=== PATIENT | male | born 1970 | race Caucasian/White ===

== ENCOUNTER 2017-05-04 12:05 | Emergency (ER) | payer BC ==
[~2017-05-04] VITALS: Ht 188 cm; Wt 99.8 kg
--- NOTE | 2017-05-04 12:11 | NUR ---
[facility] FROM [place]: ETOH. PLACED ON MONITOR. AWAITING MD ORDER
[2017-05-04] MEDS ORDERED: IV NS 0.9% 1,000 ML BAG IV ONE ×2 (12:30)
[2017-05-04 12:39] LABS: BASOPHILS # (AUTO) 0.1 /CMM (0.0-0.2); EOSINOPHILS # (AUTO) 0.1 /CMM (0.0-0.7); EOSINOPHILS % (AUTO) 1.2 % (0.0-6.0); HEMATOCRIT 47 % (39-51); HEMOGLOBIN 15.8 g/dL (13.5-17.5); LYMPHOCYTES # (AUTO) 2.5 /CMM (0.8-4.8); LYMPHOCYTES % (AUTO) 51.1 % (20.0-44.0); MEAN CORPUSCULAR HEMOGLOBIN 31 PG (26.0-33.0); MEAN CORPUSCULAR HGB CONC 34 g/dl (31.0-36.0); MEAN CORPUSCULAR VOLUME 91 fL (80-96); MONOCYTES # (AUTO) 0.3 /CMM (0.1-1.30); MONOCYTES % (AUTO) 6.8 % (2.0-12.0); NEUTROPHILS % (AUTO) 39.9 % (43.0-81.0); PLATELET COUNT (AUTO) 353 /CMM (150-450); RDW COEFFICIENT OF VARIATION 13.6 (11.5-15.0); RED BLOOD CELL COUNT(AUTO) 5.12 MIL/uL (4.5-6.0)
[2017-05-04 12:46] LABS: CALCIUM, SERUM 8.9 mg/dL (8.5-10.1)
[2017-05-04 12:54] LABS: ALBUMIN 4.4 g/dL (3.4-5.0); BILIRUBIN,DIRECT 0.1 mg/dL (0.0-0.2); BILIRUBIN,TOTAL 0.6 mg/dL (0.2-1.0); TOTAL PROTEIN, SERUM 7.6 g/dL (6.4-8.2)
[2017-05-04] MEDS ORDERED: LORAZEPAM INJ 2 MG/ML VIAL ONE (14:23)
[2017-05-04 14:24] LABS: APPEARANCE,URINE Clear (CLEAR); BILIRUBIN,URINE Negative (NEGATIVE); BLOOD, URINE Trace-intact Ery/uL (NEGATIVE); COLOR,URINE Light yellow (YELLOW); KETONES,URINE Negative (NEGATIVE); LEUKOCYTE ESTERASE ,URINE Negative (NEGATIVE); NITRITE, URINE Negative (NEGATIVE); PROTEIN,URINE Negative (NEGATIVE); UGLUCOSE Negative (NEGATIVE); UROBILINOGEN,URINE 0.2 EU/dL (0.2)
[2017-05-04] MEDS ORDERED: LORAZEPAM INJ 2 MG/ML VIAL IM ONE (14:30)
[2017-05-04 14:33] LABS: RBC,URINE 0-1 /HPF (0-2); WBC,URINE 0-3 /HPF (0-3)
[2017-05-04 14:34] LABS: BACTERIA,URINE None seen /HPF (None Seen); SQUAMOUS EPITHELIAL CELL,UR Few /HPF (None Seen)
[2017-05-04] MEDS ORDERED: HALOPERIDOL LACTATE INJ 5 MG/ML VIAL IV ONE (16:30)
[2017-05-04] MEDS ORDERED: HALOPERIDOL LACTATE INJ 5 MG/ML VIAL IM ONE (16:30)
--- NOTE | 2017-05-04 16:31 | NUR ---
VERIFIED W PA HALDOL 5 MG IVP FOR AGITATION AND HALLUCINATION
--- NOTE | 2017-05-04 16:57 | NUR ---
Patient discharged to home in stable condition. Written and verbal after care instructions given. Patient verbalizes understanding of instruction. PT AMBULATORY STEADY GAIT
--- NOTE | 2017-05-04 16:57 | NUR ---
IV removed. Catheter intact and site benign. Pressure and 4x4 applied to site. No bleeding noted.
[2017-05-04 17:01] VITALS: BP 130/87
== END 2017-05-04 17:02 | disposition home or self-care (01) ==
LOC: ER 12:06
DX: F10.129 Alcohol abuse with intoxication, unspecified (principal)
CPT/HCPCS: 36415; 80048; 80076; 80305; 80329; 81001; 85025; 96361; 96372; 96374; 99284; A4606; G0480 ×2; J2060; J7030; Z7610; 81000-TC

== ENCOUNTER 2017-05-05 22:07 | Emergency (ER) | payer BC ==
[~2017-05-05] VITALS: Ht 190.5 cm; Wt 99.8 kg
--- NOTE | 2017-05-05 22:14 | NUR ---
PT KAVITHA FROM A [facility]. PER REPORT, GIRLFRIEND CALLED [phone]. PT BEEN BINGE DRINKING SINCE MARCH. 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 SEEN IN ER YESTERDAY FOR SAME REASON. PLACED ON MONITOR. NAD NOTED. AWAITING MD MEJÍA.
--- NOTE | 2017-05-05 22:18 | NUR ---
DR CRABTREE AT BEDSIDE FOR EVAL.
--- NOTE | 2017-05-05 23:26 | NUR ---
REPORT GIVEN TO CHARGE NURSE PASCALE FOR [facility].
[2017-05-06] MEDS ORDERED: ACETAMINOPHEN ES 500 MG TABLET ONE (03:23)
[2017-05-06] MEDS ORDERED: ACETAMINOPHEN 325 MG TABLET PO ONE (04:30)
[2017-05-06] MEDS ORDERED: ONDANSETRON HCL/PF 4 MG/2 ML VIAL IM ONE (04:30)
[2017-05-06] MEDS ORDERED: ONDANSETRON HCL/PF 4 MG/2 ML VIAL ONE (04:33)
[2017-05-06] MEDS ORDERED: IV NS 0.9% 1,000 ML BAG IV ONE (07:00)
[2017-05-06] MEDS ORDERED: LORAZEPAM INJ 2 MG/ML VIAL IVP ONE (07:00)
[2017-05-06] MEDS ORDERED: HALOPERIDOL LACTATE INJ 5 MG/ML VIAL IM ONE (07:00)
[2017-05-06] MEDS ORDERED: HALOPERIDOL LACTATE INJ 5 MG/ML VIAL ONE (07:01)
[2017-05-06] MEDS ORDERED: LORAZEPAM INJ 2 MG/ML VIAL ONE (07:05)
[2017-05-06 07:18] LABS: BASOPHILS # (AUTO) 0.1 /CMM (0.0-0.2); BASOPHILS % (AUTO) 0.7 % (0.0-2.0); EOSINOPHILS % (AUTO) 0.5 % (0.0-6.0); HEMATOCRIT 48 % (39-51); LYMPHOCYTES # (AUTO) 2.4 /CMM (0.8-4.8); LYMPHOCYTES % (AUTO) 25.7 % (20.0-44.0); MEAN CORPUSCULAR HEMOGLOBIN 31 PG (26.0-33.0); MEAN CORPUSCULAR HGB CONC 34 g/dl (31.0-36.0); MEAN CORPUSCULAR VOLUME 92 fL (80-96); MONOCYTES # (AUTO) 0.7 /CMM (0.1-1.30); MONOCYTES % (AUTO) 7.4 % (2.0-12.0); NEUTROPHILS % (AUTO) 65.7 % (43.0-81.0); PLATELET COUNT (AUTO) 293 /CMM (150-450); RDW COEFFICIENT OF VARIATION 14.7 (11.5-15.0); RED BLOOD CELL COUNT(AUTO) 5.17 MIL/uL (4.5-6.0); WHITE BLOOD COUNT (AUTO) 9.2 K/uL (4.3-11.0)
[2017-05-06 07:29] LABS: CALCIUM, SERUM 9.2 mg/dL (8.5-10.1); CREATININE 1.1 mg/dL (0.6-1.3); POTASSIUM 3.8 mmol/L (3.5-5.1)
[2017-05-06] MEDS ORDERED: METOCLOPRAMIDE HCL 10 MG/2 ML VIAL IV ONE (07:30)
[2017-05-06] MEDS ORDERED: METOCLOPRAMIDE HCL 10 MG/2 ML VIAL ONE (08:12)
--- NOTE | 2017-05-06 08:39 | NUR ---
Patient discharged to home in stable condition. Written and verbal after care instructions given. Patient verbalizes understanding of instruction.
--- NOTE | 2017-05-06 08:39 | NUR ---
IV removed. Catheter intact and site benign. Pressure and 4x4 applied to site. No bleeding noted.
[2017-05-06 08:40] VITALS: BP 140/103
== END 2017-05-06 09:00 | disposition home or self-care (01) ==
LOC: ER 22:08
DX: F10.129 Alcohol abuse with intoxication, unspecified (principal)
CPT/HCPCS: 36415; 80048; 85025; 96361; 96372; 96374; 96375; 99284; A4606; G0480; J1630; J2060; J2405; J2765; J7030; Z7610

== ENCOUNTER 2017-06-17 22:58 | Emergency (ER) | payer SELFPAY ==
[~2017-06-17] VITALS: Ht 188 cm; Wt 99.8 kg
--- NOTE | 2017-06-17 23:00 | NUR ---
PT KAVITHA FROM HOME TO ER BED 12. HERE FOR ETOH. SEEN IN ER MULTIPLE TIMES FOR SASME REASON. PLACED ON MONITOR. 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
--- NOTE | 2017-06-17 23:12 | NUR ---
DR HERNANDEZ AT BEDSIDE FOR EVAL.
[2017-06-17 23:46] LABS: BASOPHILS % (AUTO) 0.4 % (0.0-2.0); EOSINOPHILS # (AUTO) 0.1 /CMM (0.0-0.7); EOSINOPHILS % (AUTO) 1.2 % (0.0-6.0); HEMATOCRIT 48 % (39-51); HEMOGLOBIN 16.7 g/dL (13.5-17.5); LYMPHOCYTES # (AUTO) 2.8 /CMM (0.8-4.8); LYMPHOCYTES % (AUTO) 22.4 % (20.0-44.0); MEAN CORPUSCULAR HEMOGLOBIN 34 PG (26.0-33.0); MEAN CORPUSCULAR HGB CONC 35 g/dl (31.0-36.0); MEAN CORPUSCULAR VOLUME 96 fL (80-96); MONOCYTES # (AUTO) 0.6 /CMM (0.1-1.30); MONOCYTES % (AUTO) 5.1 % (2.0-12.0); NEUTROPHILS # (AUTO) 8.8 /CMM (1.8-8.9); NEUTROPHILS % (AUTO) 70.9 % (43.0-81.0); PLATELET COUNT (AUTO) 283 /CMM (150-450); RDW COEFFICIENT OF VARIATION 14.2 (11.5-15.0); RED BLOOD CELL COUNT(AUTO) 4.99 MIL/uL (4.5-6.0); WHITE BLOOD COUNT (AUTO) 12.4 K/uL (4.3-11.0)
[2017-06-17 23:59] LABS: CALCIUM, SERUM 8.6 mg/dL (8.5-10.1); CARBON DIOXIDE 24 mmol/L (21-32); CHLORIDE 98 mmol/L (98-107); CREATININE 0.8 mg/dL (0.6-1.3); GLUCOSE 107 mg/dL (74-106); POTASSIUM 3.6 mmol/L (3.5-5.1); SODIUM SERUM 138 mmol/L (136-145); UREA NITROGEN, BLOOD 8 mg/dL (7-18)
[2017-06-18 00:04] LABS: TROPONIN I < 0.017 ng/mL (0.00-0.056)
[2017-06-18 00:06] LABS: ACETAMINOPHEN 0 ug/ml (10-30); ALANINE AMINOTRANSFERASE 30 U/L (12-78); ALBUMIN 4.1 g/dL (3.4-5.0); ALCOHOL, BLOOD 421 mg/dL (0-0); ALKALINE PHOSPHATASE 92 U/L (46-116); ASPARTATE AMINOTRANSFERASE 21 U/L (15-37); BILIRUBIN,DIRECT 0.1 mg/dL (0.0-0.2); BILIRUBIN,TOTAL 0.3 mg/dL (0.2-1.0); SALICYLATE 1.8 mg/dL (2.8-20.0); TOTAL PROTEIN, SERUM 8.2 g/dL (6.4-8.2)
--- NOTE | 2017-06-18 06:40 | NUR ---
PT SOMNELENT HOWEVER, HOWEVER IS AWAKE AND ALERT WHEN AROUSED. PT STATES THAT HE IS HALLUCINATING. PT DENIES SI/HI. DR DOMINGUEZ NOTIFIED.
[2017-06-18] MEDS ORDERED: OLANZAPINE 5 MG/TAB.RAPDIS ONE (06:42)
[2017-06-18] MEDS: OLANZAPINE 5 MG TABLET PO ONE (06:44)
[2017-06-18 11:46] VITALS: BP 133/88
--- NOTE | 2017-06-18 11:47 | NUR ---
Patient discharged to home in stable condition. Written and verbal after care instructions given. Patient verbalizes understanding of instruction.IV removed. Catheter intact and site benign. Pressure and 4x4 applied to site. No bleeding noted.
== END 2017-06-18 11:47 | disposition home or self-care (01) ==
LOC: ER 22:59
DX: R41.0 Disorientation, unspecified (principal); F10.129 Alcohol abuse with intoxication, unspecified
CPT/HCPCS: 36415; 70450-TC; 72125-TC; 80048-TC; 80076-TC; 83690-TC; 84443-TC; 84484-TC; 85025-TC; A4606; G0480; Z7610

== ENCOUNTER 2017-12-06 13:44 | Emergency (ER) | payer SELFPAY ==
[~2017-12-06] VITALS: Ht 193 cm; Wt 113.4 kg
--- NOTE | 2017-12-06 13:46 | NUR ---
PT [facility] TO ER BED 06. ALTERED, ETOH. PT IS AWAKE AND ADMITS TO DRINKING ALCOHOL. 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 NO OBVIOUS TRAUMA. STABLE VITALS AWAITING MD MEJÍA.
--- NOTE | 2017-12-06 13:58 | NUR ---
NED SIERRA AT BEDSIDE FOR EVAL.
[2017-12-06] MEDS ORDERED: IV NS 0.9% 1,000 ML BAG IV ONE ×2 (14:00→20:00)
--- NOTE | 2017-12-06 14:05 | NUR ---
IV LINE STARTED BLOOD DRAWN AND SENT TO LAB.
[2017-12-06 14:10] LABS: BASOPHILS # (AUTO) 0.1 /CMM (0.0-0.2); BASOPHILS % (AUTO) 1.1 % (0.0-2.0); EOSINOPHILS % (AUTO) 0.2 % (0.0-6.0); HEMATOCRIT 45 % (39-51); HEMOGLOBIN 15.8 g/dL (13.5-17.5); LYMPHOCYTES # (AUTO) 1.1 /CMM (0.8-4.8); LYMPHOCYTES % (AUTO) 19.9 % (20.0-44.0); MEAN CORPUSCULAR HEMOGLOBIN 32 PG (26.0-33.0); MEAN CORPUSCULAR HGB CONC 35 g/dl (31.0-36.0); MEAN CORPUSCULAR VOLUME 91 fL (80-96); MONOCYTES # (AUTO) 0.3 /CMM (0.1-1.30); MONOCYTES % (AUTO) 6.5 % (2.0-12.0); NEUTROPHILS # (AUTO) 3.9 /CMM (1.8-8.9); NEUTROPHILS % (AUTO) 72.3 % (43.0-81.0); PLATELET COUNT (AUTO) 189 /CMM (150-450); RDW COEFFICIENT OF VARIATION 12.1 (11.5-15.0); RED BLOOD CELL COUNT(AUTO) 5.01 MIL/uL (4.5-6.0); WHITE BLOOD COUNT (AUTO) 5.4 K/uL (4.3-11.0)
[2017-12-06 14:18] LABS: CALCIUM, SERUM 8.7 mg/dL (8.5-10.1); CREATININE 0.9 mg/dL (0.6-1.3); POTASSIUM 3.7 mmol/L (3.5-5.1)
[2017-12-06 14:25] LABS: ALBUMIN 4.1 g/dL (3.4-5.0); BILIRUBIN,DIRECT 0.2 mg/dL (0.0-0.2); BILIRUBIN,TOTAL 0.7 mg/dL (0.2-1.0); TOTAL PROTEIN, SERUM 7.6 g/dL (6.4-8.2)
[2017-12-06] MEDS ORDERED: HALOPERIDOL LACTATE INJ 5 MG/ML VIAL ONE (15:57)
[2017-12-06] MEDS ORDERED: HALOPERIDOL LACTATE INJ 5 MG/ML VIAL IM ONE (16:00)
--- NOTE | 2017-12-06 16:03 | NUR ---
PT TRANSFERED TO ER BED 15.
[2017-12-06] MEDS ORDERED: POTASSIUM CHLORIDE 20 MEQ TAB.PRT.SR PO ONE (17:00)
--- NOTE | 2017-12-06 17:16 | NUR ---
PT SLEEPING. ON MONITOR STABLE VITALS. WILL CONTINUE TO MONITOR.
[2017-12-06] MEDS ORDERED: LORAZEPAM INJ 2 MG/ML VIAL ONE (19:38)
[2017-12-06] MEDS ORDERED: LORAZEPAM INJ 2 MG/ML VIAL IV ONE (20:00)
--- NOTE | 2017-12-06 21:47 | NUR ---
PT SLEEPING. ON MONITOR W/ STABLE VITALS. WILL CONTINUE TO MONITOR.
--- NOTE | 2017-12-06 23:30 | NUR ---
PT IS AWAKE. COOPERATIVE. STATES NAUSEOUS. DR CRABTREE MADE AWARE. AWAITING NEW ORDER. STABLE VITALS.
[2017-12-06] MEDS ORDERED: ONDANSETRON HCL/PF 4 MG/2 ML VIAL ONE (23:47)
--- NOTE | 2017-12-06 23:50 | NUR ---
REPORT TO CHARGE NURSE PASCALE FOR [facility].
[2017-12-07] MEDS ORDERED: ONDANSETRON HCL/PF 4 MG/2 ML VIAL IV ONE
[2017-12-07] MEDS ORDERED: LORAZEPAM 1 MG TABLET PO ONE
[2017-12-07 01:54] VITALS: BP 132/94
--- NOTE | 2017-12-07 02:35 | NUR ---
ASSUMED CARE AT DISCHARGE. Patient discharged to home in stable condition. Written and verbal after care instructions given. Patient verbalizes understanding of instruction.IV removed. Catheter intact and site benign. Pressure and 4x4 applied to site. No bleeding noted. VSS UPON DISCHARGE. STEADY GAIT UPON DISCHARGE.
== END 2017-12-07 01:55 | disposition home or self-care (01) ==
LOC: ER 13:46
DX: F10.129 Alcohol abuse with intoxication, unspecified (principal); E87.8 Other disorders of electrolyte and fluid balance, not elsewhere classified; E87.1 Hypo-osmolality and hyponatremia; E86.0 Dehydration; Z60.2 Problems related to living alone; Y90.9 Presence of alcohol in blood, level not specified
CPT/HCPCS: 36415; 80048; 80076; 80305; 83690; 85025; 96361; 96372; 96374; 96375; 99284; A4606; G0480; J1630; J2060; J2405; J7030 ×2; Z7610

== ENCOUNTER 2018-10-02 15:13 | Emergency (ER) | payer BC, MEDICAID ==
[~2018-10-02] VITALS: Ht 182.9 cm; Wt 98.0 kg
--- NOTE | 2018-10-02 15:29 | NUR ---
PT [facility] FOR ETOH AND AMS; PT VERBALLY RESPONSIVE, VSS, NAD NOTED, PT TO ED BED 7, PT ON MONITOR. PENDING MD MEJÍA
[2018-10-02] MEDS ORDERED: ONDANSETRON HCL/PF 4 MG/2 ML VIAL IVP ONE (19:00)
[2018-10-02] MEDS ORDERED: Thiamine 100 MG in IV D5W 50 ML IV SCH (19:00)
[2018-10-02] MEDS ORDERED: CHLORDIAZEPOXIDE HCL 25 MG CAPSULE PO ONE (19:00)
[2018-10-02] MEDS ORDERED: IV NS 0.9% 1,000 ML BAG IV ONE (19:00)
[2018-10-02] MEDS ORDERED: MAG HYDROX/AL HYDROX/SIMETH 30 ML UDC PO ONE (19:00)
[2018-10-02] MEDS ORDERED: CHLORDIAZEPOXIDE HCL 25 MG CAPSULE ONE (19:33)
[2018-10-02] MEDS ORDERED: ONDANSETRON HCL/PF 4 MG/2 ML VIAL ONE ×2 (19:33→21:33)
[2018-10-02] MEDS ORDERED: MAG HYDROX/AL HYDROX/SIMETH 30 ML UDC ONE (19:33)
[2018-10-02 21:50] VITALS: BP 132/80
--- NOTE | 2018-10-02 22:06 | NUR ---
Patient given written and verbal discharge instructions. Patient verbalizes understanding of instructions. Patient is ambulatory with steady gait. Refuses offer of penitentiary placement. Patient given list of available shelters in surrounding area.
--- NOTE | 2018-10-02 22:06 | NUR ---
Pt request to speak with SW, SW will be available tomorrow morning, pt prefers to stay in the waiting area to speak with SW. Charge nurse aware.
== END 2018-10-02 22:44 | disposition home or self-care (01) ==
LOC: ER 15:18
DX: F10.129 Alcohol abuse with intoxication, unspecified (principal); I10 Essential (primary) hypertension; Z60.2 Problems related to living alone; Y90.9 Presence of alcohol in blood, level not specified
CPT/HCPCS: 96365; 96375; 99283; J2405 ×2; J3230; J3411; J7030; J7060